=== PATIENT | male | born 1965 | race Two or more races ===

== ENCOUNTER → 2017-01-16 | Outpatient (REF) | payer OTHER, MEDICAID ==
[2017-01-16 12:37] LABS: BASO % 0.6 % (0.0-1.0); EOS # 0.2 K/mm3 (0.0-0.50); EOS % 2.6 % (0.0-3.0); LARGE UNSTAINED CELL # 0.1 K/mm3 (0.0-0.4); LARGE UNSTAINED CELL % 1.3 % (0.0-4.0); LYMPH # 1.9 K/mm3 (1.5-4.5); LYMPH % 27.6 % (24.0-44.0); MEAN CORPUSCULAR HGB CONC 34.8 g/dl (32.0-36.5); MEAN CORPUSCULAR VOLUME 94.8 fl (80.0-96.0); MONO # 0.4 K/mm3 (0.0-0.8); MONO % 5.9 % (0.0-5.0); NEUTROPHILS # 4.2 K/mm3 (1.8-7.7); NEUTROPHILS % 61.9 % (36.0-66.0); PLATELET COUNT, AUTOMATED 215 k/mm3 (150-450); RED CELL DISTRIBUTION WIDTH 12.5 % (11.5-14.5); WHITE BLOOD COUNT 6.7 K/mm3 (4.0-10.0)
[2017-01-16 13:57] LABS: ALBUMIN 3.5 GM/DL (3.2-5.2); ALKALINE PHOSPHATASE 66 U/L (45-117); ALT/SGPT 38 U/L (12-78); ANION GAP 6 MEQ/L (8-16); AST/SGOT 25 U/L (15-37); BILIRUBIN,TOTAL 0.5 MG/DL (0.2-1.0); BLOOD UREA NITROGEN 12 MG/DL (7-18); CALCIUM LEVEL 8.7 MG/DL (8.5-10.1); CARBON DIOXIDE LEVEL 31 MEQ/L (21-32); CHLORIDE LEVEL 104 MEQ/L (98-107); CHOLESTEROL LEVEL 148 MG/DL (<200); CREATININE FOR GFR 0.81 MG/DL (0.70-1.30); GLOMERULAR FILTRATION RATE > 60.0 (>56); GLUCOSE, FASTING 91 MG/DL (70-105); POTASSIUM SERUM 4.7 MEQ/L (3.5-5.1); SODIUM LEVEL 141 MEQ/L (136-145); TRIGLYCERIDES LEVEL 83 MG/DL (<150)
== END ==
LOC: M SFHCADAM 10:43
PROVIDERS: ATTEND Family Medicine
DX: Z00.00 Encounter for general adult medical examination without abnormal findings (principal)

== ENCOUNTER → 2017-02-10 | Day surgery (SDC) | payer MEDICAID, OTHER ==
[~2017-02-10] VITALS: Ht 182.9 cm; Wt 176.9 kg
[~2017-02-10] MED LIST: LIDOCAINE 2% INJ 100 MG/5 ML SDV (FOR ANES.) As Ordered ONE; LISI-538 PO; LR 1,000 ML IV ONE; LR 1,000 ML IV SCH; MIDAZOLAM INJ 2 MG/2 ML VIAL (J2250) As Ordered ONE; ONDANSETRON 4MG/2ML VIAL (J2405) IV PRN; PROPOFOL 200 MG/20 ML VIAL As Ordered ONE
--- NOTE | 2017-02-10 09:29 | RO ---
DATE OF PROCEDURE: 02/10/2017 PREOPERATIVE DIAGNOSIS: Screening colonoscopy. POSTOPERATIVE DIAGNOSIS: Diverticulosis. SURGEON: Dr. Agustin CUSTOMER SERVICE LEADER: None. ANESTHESIA: IV sedation. COMPLICATIONS: None. INDICATIONS FOR PROCEDURE: The patient is a 51-year-old male who presents for screening colonoscopy. After discussion of risks and benefits of the procedure, not limited but including bleeding, infection, perforation, consent was signed and procedure was planned. DESCRIPTION OF PROCEDURE: The patient brought back to operating room #7. After sufficient sedation, he was placed in left lateral decubitus position. Next, a time-out was done to confirm proper patient and proper procedure. Following that, a colonoscope was passed through the rectum all the way to the level of the cecum with minimal resistance. Once the cecum was reached, the scope was slowly withdrawn, examining all four quadrants of the colon. No signs of any masses or polyps. In the sigmoid area, there was mild diverticulosis. Scope was brought back into the rectum, it was retroflexed. No signs of any internal hemorrhoids. Scope was then slowly removed. The patient tolerated procedure well and was awakened from anesthesia and sent to postanesthesia care unit in stable condition.
[2017-02-10 10:15] VITALS: BP 123/86
== END | disposition home or self-care (01) ==
LOC: M SDC 07:08
PROVIDERS: ATTEND Surgery
DX: Z12.11 Encounter for screening for malignant neoplasm of colon (principal); K57.30 Diverticulosis of large intestine without perforation or abscess without bleeding; I10 Essential (primary) hypertension; M12.9 Arthropathy, unspecified; Z79.899 Other long term (current) drug therapy

== ENCOUNTER → 2017-10-15 | Outpatient (REF) | payer OTHER, MEDICAID ==
[2017-10-15 12:16] LABS: BASO # 0.1 10^3/uL (0.0-0.2); EOS # 0.2 10^3/uL (0.0-0.50); EOS % 2.1 % (0.0-3.0); HEMATOCRIT 45.4 % (42.0-52.0); HEMOGLOBIN 15.2 g/dl (14.0-18.0); IMMATURE GRANULOCYTE % 0.5 % (0-3.0); LYMPH # 1.9 10^3/uL (1.5-4.5); LYMPH % 24.2 % (24.0-44.0); MEAN CORPUSCULAR HEMOGLOBIN 31.1 pg (27.0-33.0); MEAN CORPUSCULAR HGB CONC 33.5 g/dl (32.0-36.5); MEAN CORPUSCULAR VOLUME 92.8 fl (80.0-96.0); MONO # 0.6 10^3/uL (0.0-0.8); MONO % 7.4 % (0.0-5.0); NEUTROPHILS % 64.8 % (36.0-66.0); PLATELET COUNT, AUTOMATED 214 10^3/uL (150-450); RED BLOOD COUNT 4.89 10^6/uL (4.30-6.10); RED CELL DISTRIBUTION WIDTH 11.5 % (11.5-14.5); WHITE BLOOD COUNT 7.7 10^3/uL (4.0-10.0)
[2017-10-15 12:40] LABS: ALBUMIN/GLOBULIN RATIO 1.05 (1.00-1.93); ALKALINE PHOSPHATASE 81 U/L (45-117); ALT/SGPT 45 U/L (12-78); ANION GAP 7 MEQ/L (8-16); AST/SGOT 30 U/L (7-37); BILIRUBIN,TOTAL 0.8 MG/DL (0.2-1.0); BLOOD UREA NITROGEN 17 MG/DL (7-18); CALCIUM LEVEL 9.2 MG/DL (8.5-10.1); CARBON DIOXIDE LEVEL 30 MEQ/L (21-32); CHLORIDE LEVEL 100 MEQ/L (98-107); CHOLESTEROL LEVEL 131 MG/DL (<200); CHOLESTEROL RISK RATIO 2.787 (<5); CREATININE FOR GFR 0.89 MG/DL (0.70-1.30); GLOMERULAR FILTRATION RATE > 60.0 (>56); GLUCOSE, FASTING 100 MG/DL (70-100); HDL CHOLESTEROL 47 MG/DL (>40); LDL CHOLESTEROL 65.8 MG/DL (<100); NON-HDL-C 84 MG/DL; POTASSIUM SERUM 4.5 MEQ/L (3.5-5.1); SODIUM LEVEL 137 MEQ/L (136-145); TOTAL PROTEIN 7.8 GM/DL (6.4-8.2); TRIGLYCERIDES LEVEL 91 MG/DL (<150)
== END ==
LOC: M SFHCADAM 09:48
DX: I10 Essential (primary) hypertension (principal); E66.01 Morbid (severe) obesity due to excess calories; Z86.73 Personal history of transient ischemic attack (TIA), and cerebral infarction without residual deficits

== ENCOUNTER 2018-10-06 10:40 | Emergency (ER) | payer MEDICAID, OTHER ==
[~2018-10-06] VITALS: Ht 182.9 cm; Wt 168.2 kg
[~2018-10-06 10:40] MED LIST changes: -LIDOCAINE 2% INJ 100 MG/5 ML SDV (FOR ANES.) As Ordered ONE; -LR 1,000 ML IV ONE; -LR 1,000 ML IV SCH; -MIDAZOLAM INJ 2 MG/2 ML VIAL (J2250) As Ordered ONE; -ONDANSETRON 4MG/2ML VIAL (J2405) IV PRN; -PROPOFOL 200 MG/20 ML VIAL As Ordered ONE
[2018-10-06] MEDS ORDERED: AMLO10TA5 (10:50)
[2018-10-06] MEDS ORDERED: LISI40TA (10:50)
[2018-10-06] MEDS ORDERED: ASPI1CHW2 (10:50)
[2018-10-06] MEDS ORDERED: KEPP10002 (10:50)
[2018-10-06] MEDS ORDERED: ATOR80TA59 (10:50)
[2018-10-06] MEDS ORDERED: HYDR25TAB (10:50)
[2018-10-06] MEDS ORDERED: CLOP75TA2 (10:50)
[2018-10-06] MEDS ORDERED: NS 1,000 ML IV ONE (11:15)
[2018-10-06] MEDS: GASTROGRAFIN SOLUTION 30ML PO SCH ×2 (11:40→12:10)
[2018-10-06 11:51] LABS: BASO % 0.5 % (0.0-1.0); EOS % 1.9 % (0.0-3.0); HEMATOCRIT 40.7 % (42.0-52.0); HEMOGLOBIN 13.9 g/dl (13.5-17.5); LYMPH # 1.9 10^3/uL (1.5-4.5); LYMPH % 20.4 % (24.0-44.0); MEAN CORPUSCULAR HEMOGLOBIN 31.4 pg (27.0-33.0); MEAN CORPUSCULAR HGB CONC 34.2 g/dl (32.0-36.5); MEAN CORPUSCULAR VOLUME 92.1 fl (80.0-96.0); MONO % 8.2 % (0.0-5.0); NEUTROPHILS # 6.4 10^3/uL (1.8-7.7); NEUTROPHILS % 68.7 % (36.0-66.0); PLATELET COUNT, AUTOMATED 231 10^3/uL (150-450); RED BLOOD COUNT 4.42 10^6/uL (4.30-6.10); WHITE BLOOD COUNT 9.3 10^3/uL (4.0-10.0)
[2018-10-06 11:52] LABS: BASO # 0.1 10^3/uL (0.0-0.2); EOS # 0.2 10^3/uL (0.0-0.50); MONO # 0.8 10^3/uL (0.0-0.8)
[2018-10-06 12:06] LABS: INR 1.03; PROTHROMBIN TIME 13.6 SECONDS (12.1-14.4)
[2018-10-06 12:07] LABS: PARTIAL THROMBOPLASTIN TIME 28.9 SECONDS (25.4-37.6)
[2018-10-06 12:54] LABS: ALBUMIN 3.7 GM/DL (3.2-5.2); ALT/SGPT 31 U/L (12-78); AMYLASE 31 U/L (25-115); BILIRUBIN,DIRECT 0.3 MG/DL (0.0-0.2); BILIRUBIN,TOTAL 0.8 MG/DL (0.2-1.0); BLOOD UREA NITROGEN 18 MG/DL (7-18); CALCIUM LEVEL 9.1 MG/DL (8.5-10.1); CARBON DIOXIDE LEVEL 23 MEQ/L (21-32); CHLORIDE LEVEL 97 MEQ/L (98-107); CREATININE FOR GFR 1.07 MG/DL (0.70-1.30); GLOMERULAR FILTRATION RATE > 60.0 (>56); GLUCOSE, FASTING 94 MG/DL (70-100); LIPASE 136 U/L (73-393); POTASSIUM SERUM 4.2 MEQ/L (3.5-5.1); SODIUM LEVEL 132 MEQ/L (136-145); TOTAL PROTEIN 7.2 GM/DL (6.4-8.2)
[2018-10-06] MEDS ORDERED: ISOVUE-370 76% 100ML VIAL (Q9967) As Ordered ONE (13:26)
[2018-10-06] MEDS ORDERED: CIPR-249 PO (14:18)
[2018-10-06] MEDS ORDERED: ONDA4TAB6 PO (14:18)
[2018-10-06] MEDS ORDERED: FLAG500T PO (14:18)
[2018-10-06] MEDS ORDERED: CODE30TA3 PO (14:19)
--- NOTE | 2018-10-06 14:34 | REP ---
CT ABDOMEN AND PELVIS WITH IV CONTRAST: TECHNIQUE: Axial contrast enhanced images from the lung bases to the pubic symphysis using 100 mL Isovue 370 intravenous contrast material with multiplanar reformations. Visualized lung bases demonstrate no infiltrate. The liver, spleen, adrenals, pancreas, and kidneys are unremarkable. There is no hydronephrosis. There is mild atherosclerotic calcification of the abdominal aorta without aneurysm. There is no adenopathy. There is no free air or free fluid. There is mild focal thickening of the lower left colon with surrounding streaky densities in the fat, compatible with mild focal colitis. This is probably due to diverticulitis. No pelvic mass is seen. No fluid collection is seen. Urinary bladder is mildly distended and appears unremarkable. IMPRESSION: Focal colitis lower left colon, likely on the basis of mild diverticulitis. No free air, free fluid, or abscess. Appendix is normal. Electronically Signed by Taran Esteban MD 10/07/2018 09:52 A
[2018-10-06 14:42] VITALS: BP 134/78
== END 2018-10-06 14:51 | disposition home or self-care (01) ==
LOC: M ED 10:40
DX: K57.32 Diverticulitis of large intestine without perforation or abscess without bleeding (principal); I10 Essential (primary) hypertension; Z86.73 Personal history of transient ischemic attack (TIA), and cerebral infarction without residual deficits; Z79.82 Long term (current) use of aspirin; Z79.899 Other long term (current) drug therapy
CPT/HCPCS: 74177; 80048; 80076; 81001; 82150; 83690; 85025; 85610; 85730; 99284; Q9963; Q9967

== ENCOUNTER 2021-05-08 10:35 | Inpatient (IN) | payer OTHER ==
[~2021-05-08] VITALS: Ht 182.9 cm; Wt 168.6 kg
[2021-05-08] MEDS: CLOPIDOGREL 75 MG TAB PO SCH (09:00)
[~2021-05-08 10:35] MED LIST changes: +ACET300T47 PO; +AMLO1TAB25 PO; +ASPI1CHW2; +ATOR80TA59 PO; +CIPR-249 PO; +CLOP75TA2 PO; +FLAG500T PO; +HYDR-3490 PO; +KEPP10002; -LISI-538 PO; +LISI20TA33 PO; +LISI40TA4 PO; +ONDA4TAB6 PO
--- NOTE | 2021-05-08 12:08 | REP ---
INDICATION: Coronavirus workup COMPARISON: None. TECHNIQUE: Portable AP views of the chest FINDINGS: Subtle moderate diffuse bilateral airspace disease noted and consistent with COVID-19 pulmonary disease. No obvious effusion. No pneumothorax. Mild cardiomegaly with loop recorder identified. IMPRESSION: Subtle diffuse bilateral opacities consistent with COVID-19 pulmonary disease. <Electronically signed by Davis Roman > 05/08/21 [id number]
[2021-05-08 13:09] LABS: RSV AMPLIFICATION NEGATIVE (NEGATIVE)
[2021-05-08 13:25] LABS: HEMATOCRIT 40.8 % (42.0-52.0); HEMOGLOBIN 13.8 g/dl (13.5-17.5); MEAN CORPUSCULAR HEMOGLOBIN 31.2 pg (27.0-33.0); MEAN CORPUSCULAR HGB CONC 33.8 g/dl (32.0-36.5); MEAN CORPUSCULAR VOLUME 92.3 fl (80.0-96.0); PLATELET COUNT, AUTOMATED 340 10^3/uL (150-450); RED BLOOD COUNT 4.42 10^6/uL (4.30-6.10); WHITE BLOOD COUNT 8.3 10^3/uL (4.0-10.0)
[2021-05-08] MEDS ORDERED: VITMTA PO (13:27)
[2021-05-08] MEDS ORDERED: HOME MED LIST COMPLETE! XX SCH (13:30)
[2021-05-08 13:38] LABS: INR 1.07; PROTHROMBIN TIME 14.3 SECONDS (12.7-14.5)
[2021-05-08 13:39] LABS: PARTIAL THROMBOPLASTIN TIME 33.4 SECONDS (25.9-37.0)
[2021-05-08 13:41] LABS: D-DIMER QUANT 2820.53 ng/ml (<500)
[2021-05-08 13:58] LABS: BASOPHILS 1 % (0-1); LYMPHOCYTES 11 % (16-44); MONOCYTES 3 % (0-5); NEUTROPHILS 85 % (28-66); PLATELET ESTIMATE NORMAL (NORMAL)
[2021-05-08 14:02] LABS: ALBUMIN 2.6 GM/DL (3.2-5.2); ALT/SGPT 51 U/L (12-78); BILIRUBIN,TOTAL 0.8 MG/DL (0.2-1.0); BLOOD UREA NITROGEN 21 MG/DL (7-18); CALCIUM LEVEL 9.3 MG/DL (8.5-10.1); CARBON DIOXIDE LEVEL 26 MEQ/L (21-32); CHLORIDE LEVEL 100 MEQ/L (98-107); CK-MB VALUE MASS < 1.0 NG/ML (<3.6); CPK CREATINE PHOSPHOKINASE 297 U/L (39-308); CREATININE FOR GFR 1.42 MG/DL (0.70-1.30); FERRITIN 2106 NG/ML (26-388); GLOMERULAR FILTRATION RATE 54.7 (>56); GLUCOSE, FASTING 111 MG/DL (70-100); LDH LACTATE DEHYDROGENASE 344 U/L (87-241); MAGNESIUM LEVEL 1.6 MG/DL (1.8-2.4); MB/CK RELATIVE INDEX 0.34 (< OR =4); POTASSIUM SERUM 4.3 MEQ/L (3.5-5.1); SODIUM LEVEL 132 MEQ/L (136-145); TOTAL PROTEIN 7.5 GM/DL (6.4-8.2); TROPONIN I < 0.02 NG/ML (< 0.10)
[2021-05-08] MEDS ORDERED: ACETAMINOPHEN TAB 650MG DOSE (2X325MG) PO PRN (15:10)
[2021-05-08] MEDS: NS 1,000 ML IV SCH ×2 (15:20→23:02)
[2021-05-08] MEDS ORDERED: ALBUTEROL 90 MCG/ACT 8GM HFA INHALER INH PRN (15:20)
--- NOTE | 2021-05-08 15:33 | HPEPDOC ---
General Date of Admission 05/08/21 Date of Service: May 08, 2021 Chief Complaint The patient is a 56-year-old male admitted with a reason for visit of Covid Test. Source: Patient History of Present Illness Patient is 56 years old male with past medical history of stroke, hypertension, obstructive sleep apnea on CPAP presented to hospital with increased shortness of breath and intermittent cough. Patient stated that he developed these symptoms for past 6- 7 days associated with diarrhea. He states that his family members had Covid and he was not vaccinated. In ER patient was found to have oxygenation of 86-87% on room air, no leukocytosis, hemoglobin 13.8, sodium 132, creatinine 1.4, D-dimer 2820. Patient was tested positive for Covid 19. Chest x-ray shows Subtle diffuse bilateral opacities consistent with COVID-19 pulmonary disease. EKG showed atrial fibrillation Home Medications Scheduled Amlodipine Besylate (Amlodipine Besylate) 10 Mg Tab, 1 TAB PO DAILY, (Reported) Atorvastatin Calcium (Atorvastatin Calcium) 80 Mg Tab, 80 MG PO DAILY, (Reported) Clopidogrel Bisulfate (Clopidogrel) 75 Mg Tab, 75 MG PO DAILY, (Reported) Hydrochlorothiazide (Hydrochlorothiazide) 25 Mg Tab, 25 MG PO DAILY, (Reported) Lisinopril (Lisinopril) 40 Mg Tab, 40 MG PO DAILY, (Reported) Multivitamins (Thera M Plus Tablet) 1 Each Tablet, 2 TAB PO DAILY, (Reported) Allergies Coded Allergies: No Known Allergies (Unverified , 02/06/17) Past Medical History Medical History CVA IN 2018 (MULTIPLE EMBOLIC POSTERIOR CIRCULATION STROKES); WITH R LEG WEAKNESS HYPERTENSION DAVEY, CPAP 13.00 CMH20 (10/2017) ECHO WITH MILD CONCENTRIC LVH, LVEF 50-55%, DILATED ASCENDING AORTA 3.6 CM (09/2017); F/U [facility]NA WITH BUBBLE STUDY TO EVAL FOR PFO WAS NEGATIVE FOR THIS (04/2018) Surgical History KNEE RIGHT 09/14, 05/14 LEFT KNEE 04/13 L RETINAL DETACHMENT COLONOSCOPY 10 YEARS 02/2017 Family History FATHER: , DIAGNOSED WITH UNSPECIFIED CEREBRAL ARTERY OCCLUSION WITH CEREBRAL INFARCTION MOTHER: ALIVE, DIABETES, HYPERTENSION SIBLINGS: , COLON CANCER, OTHER MALIGNANT NEOPLASM OF UNSPECIFIED SITE 1 BROTHER(S) , 1 SISTER(S) . Social History * Smoker: Denies Alcohol: occationally Drugs: denies A-FIB/CHADSVASC A-FIB History Current/History of A-Fib/PAF?: No Current PO Anticoag Therapy: No Review of Systems Constitutional: Reports: Weakness; Denies: Chills, Fever Eyes: Denies: Pain ENT: Denies: Head Aches Skin: Denies: Rash, Lesions Pulmonary: Reports: Dyspnea, Cough Cardiovascular: Denies: Chest Pain Gastrointestinal: Denies: Nausea, Vomiting Genitourinary: Denies: Dysuria Hematologic: Denies: Bruising Endocrine: Denies: Polydipsia Musculoskeletal: Denies: Neck Pain Neurological: Denies: Weakness Psych: Reports: Mood Normal Physical Examination General Exam: Positive: Alert, Cooperative Eye Exam: Positive: PERRLA ENT Exam: Positive: Atraumatic Neck Exam: Positive: Supple; Negative: JVD Chest Exam: Positive: Diminished; Negative: Clear to auscultation Heart Exam: Positive: Rate Normal Telemetry: Positive: No significant arrhythmia Abdomen Exam: Positive: Normal bowel sounds Extremity Exam: Negative: Clubbing, Cyanosis Skin Exam: Positive: Nl turgor and temperature Neuro Exam: Positive: Normal Gait Psych Exam: Positive: Mental status NL Vital Signs Vital Signs Date Time Temp Pulse Resp B/P (MAP) Pulse Ox O2 Delivery O2 Flow Rate FiO2 05/08/21 10:36 98.3 83 18 108/72 (84) 94 Room Air Laboratory Data Labs 24H Laboratory Tests 2 05/08/21 12:20: Neutrophils (%) (Auto) , Nucleated Red Blood Cells % (auto) 0.0, Neutrophils 85H, Lymphocytes (Manual) 11L, Monocytes (Manual) 3, Basophils (Manual) 1, Platelet Estimate NORMAL, Prothrombin Time 14.3H, Prothromb Time International Ratio 1.07, Activated Partial Thromboplast Time 33.4, Fibrinogen 868H, D-Dimer, Quantitative 2820.53H, Anion Gap 6L, Glomerular Filtration Rate 54.7L, Lactic Acid Level 1.9, Calcium Level 9.3, Magnesium Level 1.6L, Ferritin 2106H, Total Bilirubin 0.8, Aspartate Amino Transf (AST/SGOT) 46H, Alanine Aminotransferase (ALT/SGPT) 51, Alkaline Phosphatase 57, Lactate Dehydrogenase 344H, Total Creatine Kinase 297, Creatine Kinase MB < 1.0, Creatine Kinase MB Relative Index 0.34, Troponin I < 0.02, C-Reactive Protein, Quantitative 22.40H, Total Protein 7.5, Albumin 2.6L, Albumin/Globulin Ratio 0.5, Coronavirus (COVID-19)(PCR) POSITIVEA, Influenza Type A (RT-PCR) NEGATIVE, Influenza Type B (RT-PCR) NEGATIVE, Respiratory Syncytial Virus (PCR) NEGATIVE CBC/BMP Laboratory Tests 05/08/21 12:20 Microbiology Microbiology 05/08/21 Blood Culture, Received Pending Assessment/Plan Patient is 56 years old male with past medical history of stroke, hypertension, obstructive sleep apnea on CPAP presented to hospital with increased shortness of breath and intermittent cough. Patient stated that he developed these symptoms for past 6- 7 days associated with diarrhea. He states that his family members had Covid and he was not vaccinated. In ER patient was found to have oxygenation of 86-87% on room air, no leukocytosis, hemoglobin 13.8, sodium 132, creatinine 1.4, D-dimer 2820. Patient was tested positive for Covid 19. Chest x-ray shows Subtle diffuse bilateral opacities consistent with COVID-19 pulmonary disease. Problems (1) COVID-19 Status: Acute Problem Text: COVID-19 pneumonia X-ray shows bilateral patchy infiltrate Labs according to Covid protocol D-dimer elevated, I started full dose of anticoagulation Remdesivir IV , dexamethasone Iv We will discuss with infectious disease baricitinib administration Await procalcitonin, if elevated will start antibiotics (2) Morbid obesity Status: Chronic Problem Text: BMI 48.9 Complicated care (3) Acute hypoxemic respiratory failure Status: Acute Problem Text: Superimposed with obstructive sleep apnea Secondary to COVID-19 pneumonia Incentive spirometry (4) Hypertension Status: Chronic Problem Text: Continue home meds (5) CANELO (acute kidney injury) Status: Acute Problem Text: Most likely secondary to dehydration IV fluid Continue to monitor (6) Atrial fibrillation Status: Acute Problem Text: Patient was not diagnosed with atrial fibrillation before Full dose of anticoagulation for now Metoprolol 25 mg twice daily Plan / VTE VTE Prophylaxis Ordered?: Yes SHAYAN CLIFTON DO May 08, 2021 15:33
[2021-05-08 16:01] LABS: BILIRUBIN,DIRECT 0.3 MG/DL (0.0-0.2)
[2021-05-08] MEDS ORDERED: REMDESIVIR 200 MG in NS 250 ML IV ONE (17:00)
[2021-05-08] MEDS ORDERED: METOPROLOL 5 MG/5 ML VIAL IV PRN (18:30)
[2021-05-08] MEDS ORDERED: SODIUM CHLORIDE 0.9% INJ 10 ML SYR IV ONE (19:00)
[2021-05-08 20:00] VITALS: O2SAT 94
[2021-05-08 20:24] VITALS: BP 106/80
[2021-05-08] MEDS: ENOXAPARIN 150MG/ML SYRINGE (J1650 PER 10MG) SC SCH (20:36)
[2021-05-08] MEDS: BARICITINIB 2MG TABLET (OLUMIANT) FOR EUA PO SCH (20:38)
[2021-05-08] MEDS: METOPROLOL TART 50 MG TAB PO SCH (20:39)
[2021-05-08] MEDS ORDERED: METOPROLOL TART 25 MG TABLET PO SCH (21:00)
[2021-05-08 23:24] VITALS: BP 104/68
[2021-05-09] VITALS (18 sets, daily range): BP systolic 113–125; BP diastolic 68–75; O2SAT 88–95
[2021-05-09 00:54] LABS: APPEARANCE, URINE HAZY (CLEAR); BACTERIA, URINE AUTO NEGATIVE (NEGATIVE); BILIRUBIN, URINE AUTO NEGATIVE (NEGATIVE); BLOOD, URINE BLOOD NEGATIVE (NEGATIVE); COLOR, URINE YELLOW (YELLOW); GLUCOSE, URINE (UA) AUTO NEGATIVE (NEGATIVE); KETONE, URINE AUTO NEGATIVE (NEGATIVE); LEUKOCYTE ESTERASE, URINE AUTO NEGATIVE (NEGATIVE); MUCUS, URINE SMALL (NEGATIVE); NITRITE, URINE AUTO NEGATIVE (NEGATIVE); PROTEIN, URINE AUTO 1+ mg/dL (NEGATIVE); RBC, URINE AUTO 3 /HPF (0-3); SPECIFIC GRAVITY URINE AUTO 1.015 (1.002-1.035); SQUAMOUS EPITHELIAL CELL UR AU 1 /HPF (0-6); WBC, URINE AUTO 2 /HPF (0-3)
[2021-05-09] MEDS: NS 1,000 ML IV SCH ×3 (06:27→22:24)
[2021-05-09] MEDS: ENOXAPARIN 150MG/ML SYRINGE (J1650 PER 10MG) SC SCH (06:27)
[2021-05-09 08:02] LABS: HEMATOCRIT 36.9 % (42.0-52.0); HEMOGLOBIN 12.5 g/dl (13.5-17.5); MEAN CORPUSCULAR HEMOGLOBIN 31.3 pg (27.0-33.0); MEAN CORPUSCULAR HGB CONC 33.9 g/dl (32.0-36.5); MEAN CORPUSCULAR VOLUME 92.5 fl (80.0-96.0); PLATELET COUNT, AUTOMATED 372 10^3/uL (150-450); RED BLOOD COUNT 3.99 10^6/uL (4.30-6.10); WHITE BLOOD COUNT 7.5 10^3/uL (4.0-10.0)
[2021-05-09 08:20] LABS: ALBUMIN 2.2 GM/DL (3.2-5.2); ALT/SGPT 59 U/L (12-78); BILIRUBIN,DIRECT 0.1 MG/DL (0.0-0.2); BILIRUBIN,TOTAL 0.5 MG/DL (0.2-1.0); BLOOD UREA NITROGEN 23 MG/DL (7-18); CALCIUM LEVEL 8.6 MG/DL (8.5-10.1); CARBON DIOXIDE LEVEL 26 MEQ/L (21-32); CHLORIDE LEVEL 103 MEQ/L (98-107); CREATININE FOR GFR 0.91 MG/DL (0.70-1.30); GLOMERULAR FILTRATION RATE > 60.0 (>56); GLUCOSE, FASTING 107 MG/DL (70-100); MAGNESIUM LEVEL 1.8 MG/DL (1.8-2.4); POTASSIUM SERUM 3.5 MEQ/L (3.5-5.1); SODIUM LEVEL 136 MEQ/L (136-145); TOTAL PROTEIN 6.8 GM/DL (6.4-8.2)
[2021-05-09 08:48] LABS: ATYPICAL LYMPH 5 % (0-5); BASOPHILS 1 % (0-1); EOSINOPHILS 3 % (0-3); LYMPHOCYTES 14 % (16-44); MONOCYTES 8 % (0-5); NEUTROPHILS 68 % (28-66); PLATELET ESTIMATE NORMAL (NORMAL)
[2021-05-09] MEDS: MULTIVITAMINS/MINERALS THERAP 1 TAB PO SCH (10:27)
[2021-05-09] MEDS: ATORVASTATIN 20 MG TAB PO SCH (10:28)
[2021-05-09] MEDS: BARICITINIB 2MG TABLET (OLUMIANT) FOR EUA PO SCH (10:28)
[2021-05-09] MEDS: lisinopriL 40 MG TAB PO SCH (10:28)
[2021-05-09] MEDS: CLOPIDOGREL 75 MG TAB PO SCH (10:29)
[2021-05-09] MEDS: METOPROLOL TART 50 MG TAB PO SCH ×2 (10:29→20:35)
[2021-05-09] MEDS: dexameTHASONE 4 MG/ML 1ML VIAL (J1100 PER 1MG) IV SCH (10:31)
[2021-05-09] MEDS: guaiFENesin ER 600 MG TAB PO SCH ×2 (12:26→20:34)
--- NOTE | 2021-05-09 13:19 | IPNPDOC ---
Text Note Date of Service The patient was seen on 05/09/21. NOTE Subjective: No any acute events overnight. Patient's oxygen requirements around 4 L via nasal cannula. He did not use oxygen before admission. Objective: GENERAL APPEARANCE: Morbidly obese man HEENT: no scleral icterus, no JVD, EOMI CARDIOVASCULAR: S1S2 LUNGS: Diminished lung sounds bilaterally ABDOMEN: soft & not tender w palpation MUSCULOSKELETAL: no cyanosis, no swelling INTEGUMENT: no generalized pallor NEUROLOGICAL: cranial nerve function from 2-12 intact, follows commands, speech not dysarthric Assessment/Plan Patient is 56 years old male with past medical history of stroke, hypertension, obstructive sleep apnea on CPAP presented to hospital with increased shortness of breath and intermittent cough. Patient stated that he developed these symptoms for past 6- 7 days associated with diarrhea. He states that his family members had Covid and he was not vaccinated. In ER patient was found to have oxygenation of 86-87% on room air, no leukocytosis, hemoglobin 13.8, sodium 132, creatinine 1.4, D-dimer 2820. Patient was tested positive for Covid 19. Chest x-ray shows Subtle diffuse bilateral opacities consistent with COVID-19 pulmonary disease. Problems (1) COVID-19 COVID-19 pneumonia X-ray shows bilateral patchy infiltrate Labs according to Covid protocol D-dimer elevated, Continue Eliquis Remdesivir IV , dexamethasone Iv, baricitinib Procalcitonin negative, I will not initiate antibiotic therapy (2) Morbid obesity BMI 48.9 Complicated care (3) Acute hypoxemic respiratory failure Superimposed with obstructive sleep apnea Patient's current oxygen requirements 4 L, with no oxygen he rapidly desaturated to 84% Secondary to COVID-19 pneumonia Incentive spirometry (4) Hypertension Continue home meds (5) CANELO (acute kidney injury) Resolved Most likely secondary to dehydration Baseline of creatinine 0.9, elevated on admission to 1.4 IV fluid Continue to monitor (6) Atrial fibrillation Patient was not diagnosed with atrial fibrillation before Eliquis 5 mg twice daily Metoprolol 25 mg twice daily VS,Fishbone, I+O VS, Fishbone, I+O Laboratory Tests 05/09/21 06:52 Vital Signs Date Time Temp Pulse Resp B/P (MAP) Pulse Ox O2 Delivery O2 Flow Rate FiO2 05/09/21 11:47 98.2 92 22 118/75 (89) 94 Nasal Cannula 4.0 I&O- Last 24 Hours up to 6 AM 05/09/21 06:00 Intake Total 1190 ml Output Total 850 ml Balance 340 ml SHAYAN CLIFTON DO May 09, 2021 13:19
[2021-05-09] MEDS ORDERED: REMDESIVIR 100 MG in NS 250 ML IV SCH ×2 (17:00→21:00)
--- NOTE | 2021-05-09 17:34 | ECGEPIP ---
[facility] - ED Test Date: 2021-05-08 Pat Name: ANNE JUNG Department: Room: - Gender: Male Visitor Services Information Assistant: INDRA : 1965 Requested By: Elvia Osullivan Order Number: [id number] Reading MD: Elvia Osullivan Measurements Intervals [place] Rate: 118 P: VT: QRS: -61 QRSD: 78 T: 32 QT: 308 QTc: 431 Interpretive Statements Atrial fibrillation with rapid ventricular response Left anterior fascicular block prwp No prior Electronically Signed on 05-09-2021 17:33:44 EDT by Elvia Osullivan
[2021-05-09] MEDS ORDERED: SODIUM CHLORIDE 0.9% INJ 10 ML SYR IV SCH ×2 (18:00→22:00)
[2021-05-09] MEDS: APIXABAN 5 MG TAB (ELIQUIS) PO SCH (20:34)
[2021-05-10] VITALS: BP 117/88; O2SAT 96
[2021-05-10 04:00] VITALS: BP 122/82; O2SAT 91
[2021-05-10] MEDS: NS 1,000 ML IV SCH (06:32)
[2021-05-10 07:37] LABS: HEMATOCRIT 35.9 % (42.0-52.0); HEMOGLOBIN 12.2 g/dl (13.5-17.5); MEAN CORPUSCULAR HEMOGLOBIN 31.2 pg (27.0-33.0); MEAN CORPUSCULAR VOLUME 91.8 fl (80.0-96.0); PLATELET COUNT, AUTOMATED 440 10^3/uL (150-450); RED BLOOD COUNT 3.91 10^6/uL (4.30-6.10); WHITE BLOOD COUNT 9.6 10^3/uL (4.0-10.0)
[2021-05-10 07:51] LABS: INR 1.16; PROTHROMBIN TIME 15.2 SECONDS (12.7-14.5)
[2021-05-10 07:52] LABS: PARTIAL THROMBOPLASTIN TIME 31.9 SECONDS (25.9-37.0)
[2021-05-10 08:19] LABS: ALBUMIN 2.1 GM/DL (3.2-5.2); ALT/SGPT 74 U/L (12-78); BILIRUBIN,DIRECT 0.1 MG/DL (0.0-0.2); BILIRUBIN,TOTAL 0.4 MG/DL (0.2-1.0); BLOOD UREA NITROGEN 23 MG/DL (7-18); CALCIUM LEVEL 8.6 MG/DL (8.5-10.1); CARBON DIOXIDE LEVEL 25 MEQ/L (21-32); CHLORIDE LEVEL 110 MEQ/L (98-107); CPK CREATINE PHOSPHOKINASE 244 U/L (39-308); CREATININE FOR GFR 0.79 MG/DL (0.70-1.30); FERRITIN 1893 NG/ML (26-388); GLOMERULAR FILTRATION RATE > 60.0 (>56); GLUCOSE, FASTING 138 MG/DL (70-100); LDH LACTATE DEHYDROGENASE 265 U/L (87-241); NT-PRO BNP 1377 PG/ML (<125); POTASSIUM SERUM 4.3 MEQ/L (3.5-5.1); SODIUM LEVEL 139 MEQ/L (136-145); TOTAL PROTEIN 6.8 GM/DL (6.4-8.2); TROPONIN I < 0.02 NG/ML (< 0.10)
[2021-05-10 08:26] LABS: ATYPICAL LYMPH 1 % (0-5); LYMPHOCYTES 8 % (16-44); MONOCYTES 5 % (0-5); NEUTROPHILS 86 % (28-66); PLATELET ESTIMATE NORMAL (NORMAL)
[2021-05-10] MEDS: MULTIVITAMINS/MINERALS THERAP 1 TAB PO SCH (08:35)
[2021-05-10] MEDS: ATORVASTATIN 20 MG TAB PO SCH (08:35)
[2021-05-10] MEDS: BARICITINIB 2MG TABLET (OLUMIANT) FOR EUA PO SCH (08:36)
[2021-05-10] MEDS: dexameTHASONE 4 MG/ML 1ML VIAL (J1100 PER 1MG) IV SCH (08:36)
[2021-05-10] MEDS: APIXABAN 5 MG TAB (ELIQUIS) PO SCH (08:37)
[2021-05-10] MEDS: CLOPIDOGREL 75 MG TAB PO SCH (08:37)
[2021-05-10] MEDS: guaiFENesin ER 600 MG TAB PO SCH (08:37)
[2021-05-10 08:39] VITALS: BP 119/79
[2021-05-10] MEDS: METOPROLOL TART 50 MG TAB PO SCH (08:39)
[2021-05-10] MEDS: lisinopriL 40 MG TAB PO SCH (08:39)
[2021-05-10 08:40] VITALS: BP 119/79
[2021-05-10 11:55] VITALS: BP 119/68
[2021-05-10] MEDS ORDERED: ELIQ5TAB PO (14:16)
--- NOTE | 2021-05-10 14:18 | IPNPDOC ---
Text Note Date of Service The patient was seen on 05/10/21. NOTE Subjective: No any acute events overnight. Patient's oxygen requirements around 4-5 L via nasal cannula. Patient stated that he feels better today Objective: GENERAL APPEARANCE: Morbidly obese man HEENT: no scleral icterus, no JVD, EOMI CARDIOVASCULAR: S1S2 LUNGS: Diminished lung sounds bilaterally ABDOMEN: soft & not tender w palpation MUSCULOSKELETAL: no cyanosis, no swelling INTEGUMENT: no generalized pallor NEUROLOGICAL: cranial nerve function from 2-12 intact, follows commands, speech not dysarthric Assessment/Plan Patient is 56 years old male with past medical history of stroke, hypertension, obstructive sleep apnea on CPAP presented to hospital with increased shortness of breath and intermittent cough. Patient stated that he developed these symptoms for past 6- 7 days associated with diarrhea. He states that his family members had Covid and he was not vaccinated. In ER patient was found to have o xygenation of 86-87% on room air, no leukocytosis, hemoglobin 13.8, sodium 132, creatinine 1.4, D-dimer 2820. Patient was tested positive for Covid 19. Chest x-ray shows Subtle diffuse bilateral opacities consistent with COVID-19 pulmonary disease. Problems (1) COVID-19 COVID-19 pneumonia X-ray shows bilateral patchy infiltrate Labs according to Covid protocol D-dimer elevated, Continue Eliquis Remdesivir IV , dexamethasone Iv, baricitinib Procalcitonin negative, I will not initiate antibiotic therapy (2) Morbid obesity BMI 48.9 Complicated care (3) Acute hypoxemic respiratory failure Superimposed with obstructive sleep apnea Patient's current oxygen requirements 4 L, with no oxygen he rapidly desaturated to 84% Secondary to COVID-19 pneumonia Incentive spirometry (4) Hypertension Continue home meds (5) CANELO (acute kidney injury) Resolved Most likely secondary to dehydration Baseline of creatinine 0.9, elevated on admission to 1.4 IV fluid Continue to monitor (6) Atrial fibrillation Patient was not diagnosed with atrial fibrillation before Eliquis 5 mg twice daily Metoprolol 25 mg twice daily DVT prophylaxis with Eliquis VS,Fishbone, I+O VS, Fishbone, I+O Laboratory Tests 05/10/21 07:23 Vital Signs Date Time Temp Pulse Resp B/P (MAP) Pulse Ox O2 Delivery O2 Flow Rate FiO2 05/10/21 11:55 96.8 83 20 119/68 (85) 93 Nasal Cannula 2.0 I&O- Last 24 Hours up to 6 AM 05/10/21 06:00 Intake Total 3635 ml Output Total 1100 ml Balance 2535 ml SHAYAN CLIFTON DO May 10, 2021 14:18
[2021-05-10 15:57] VITALS: BP 105/70
[2021-05-10] MEDS ORDERED: VENTAER INH (16:47)
[2021-05-10] MEDS ORDERED: LOPR1TAB6 PO (16:47)
[2021-05-10] MEDS ORDERED: MUCI600T31 PO (16:47)
--- NOTE | 2021-05-10 16:58 | DS.PDOC ---
Discharge Summary General Date of Admission May 08, 2021 at 15:06 Date of Discharge 05/10/21 Discharge Summary PROCEDURES PERFORMED DURING STAY: [None]. ADMITTING DIAGNOSES: COVID-19 Morbid obesity Acute hypoxemic respiratory failure Hypertension CANELO (acute kidney injury) Atrial fibrillation DISCHARGE DIAGNOSES: COVID-19 Morbid obesity Acute hypoxemic respiratory failure Hypertension CANELO (acute kidney injury) Atrial fibrillation COMPLICATIONS/CHIEF COMPLAINT: Covid-19. HISTORY OF PRESENT ILLNESS:Patient is 56 years old male with past medical history of stroke, hypertension, obstructive sleep apnea on CPAP presented to hospital with increased shortness of breath and intermittent cough. Patient stated that he developed these symptoms for past 6- 7 days associated with diarrhea. He states that his family members had Covid and he was not vaccinated. In ER patient was found to have oxygenation of 86-87% on room air, no leukocytosis, hemoglobin 13.8, sodium 132, creatinine 1.4, D-dimer 2820. Patient was tested positive for Covid 19. Chest x-ray shows Subtle diffuse bilateral opacities consistent with COVID-19 pulmonary disease. HOSPITAL COURSE: During the hospital stay the following issue addressed (1) COVID-19 COVID-19 pneumonia X-ray shows bilateral patchy infiltrate Patient received remdesivir IV , dexamethasone Iv, baricitinib with positive effect Procalcitonin negative, I will not initiate antibiotic therapy 1 set of blood culture was positive for gram-positive cocci in clusters. Patient is not septic, clinically improved. Most likely its contamination Today, patient breathing status markedly improved. He has 94% oxygen saturation on room air (2) Morbid obesity BMI 48.9 Complicated care (3) Acute hypoxemic respiratory failure Superimposed with obstructive sleep apnea Resolved (4) Hypertension Continue home meds (5) CANELO (acute kidney injury) Resolved (6) Atrial fibrillation Patient was not diagnosed with atrial fibrillation before Eliquis 5 mg twice daily Patient received metoprolol 50 twice daily. Patient will need follow-up with control room operator DISCHARGE MEDICATIONS: Please see below. ALLERGIES: Please see below. PHYSICAL EXAMINATION ON DISCHARGE: VITAL SIGNS: Please see below. GENERAL APPEARANCE: Morbidly obese man HEENT: no scleral icterus, no JVD, EOMI CARDIOVASCULAR: S1S2 LUNGS: Diminished lung sounds bilaterally ABDOMEN: soft & not tender w palpation MUSCULOSKELETAL: no cyanosis, no swelling INTEGUMENT: no generalized pallor NEUROLOGICAL: cranial nerve function from 2-12 intact, follows commands, speech not dysarthric LABORATORY DATA: Please see below. PROGNOSIS: Fair ACTIVITY: [As tolerated]. DIET: Cardiac DISPOSITION: . Home DISCHARGE INSTRUCTIONS: Continue isolation for 14 days in total ITEMS TO FOLLOWUP ON ON OUTPATIENT: Follow-up with PCP DISCHARGE CONDITION: [Stable]. TIME SPENT ON DISCHARGE: 40 minutes. Vital Signs/I&Os Vital Signs Date Time Temp Pulse Resp B/P (MAP) Pulse Ox O2 Delivery O2 Flow Rate FiO2 05/10/21 16:45 94 Room Air 05/10/21 15:57 97.2 86 20 105/70 (82) 2.0 I&O- Last 24 Hours up to 6 AM 05/10/21 06:00 Intake Total 3635 ml Output Total 1100 ml Balance 2535 ml Laboratory Data Labs 24H Laboratory Tests 2 05/10/21 07:23: Neutrophils (%) (Auto) , Nucleated Red Blood Cells % (auto) 0.0, Neutrophils 86H, Lymphocytes (Manual) 8L, Monocytes (Manual) 5, Atypical Lymphocytes 1, Red Blood Cell Morphology NORMAL, Platelet Estimate NORMAL, Prothrombin Time 15.2H, Prothromb Time International Ratio 1.16, Activated Partial Thromboplast Time 31.9, Fibrinogen 713H, Anion Gap 4L, Glomerular Filtration Rate > 60.0, Calcium Level 8.6, Magnesium Level 2.0, Ferritin 1893H, Total Bilirubin 0.4, Direct Bilirubin 0.1, Aspartate Amino Transf (AST/SGOT) 53H, Alanine Aminotransferase (ALT/SGPT) 74, Alkaline Phosphatase 51, Lactate Dehydrogenase 265H, Total Creatine Kinase 244, Troponin I < 0.02, PK-Grl-P-Type Natriuretic Peptide 1377H, Total Protein 6.8, Albumin 2.1L, Albumin/Globulin Ratio 0.4, Procalcitonin <0.05 CBC/BMP Laboratory Tests 05/10/21 07:23 Microbiology Microbiology 05/09/21 Blood Culture, Received Pending 05/09/21 Blood Culture, Received Pending 05/08/21 Blood Culture - Preliminary, Resulted 05/08/21 Blood Culture - Preliminary, Resulted No Growth after 48 hours. All Specime... Discharge Medications Scheduled Amlodipine Besylate (Amlodipine Besylate) 10 Mg Tab, 1 TAB PO DAILY, (Reported) Apixaban (Eliquis) 5 Mg Tablet, 5 MG PO BID Atorvastatin Calcium (Atorvastatin Calcium) 80 Mg Tab, 80 MG PO DAILY, ( Reported) Clopidogrel Bisulfate (Clopidogrel) 75 Mg Tab, 75 MG PO DAILY, (Reported) Guaifenesin (Mucinex) 600 Mg Tab.er.12h, 600 MG PO BID Hydrochlorothiazide (Hydrochlorothiazide) 25 Mg Tab, 25 MG PO DAILY, (Reported) Lisinopril (Lisinopril) 40 Mg Tab, 40 MG PO DAILY, (Reported) Metoprolol Tartrate (Lopressor) 50 Mg Tablet, 50 MG PO BID Multivitamins (Thera M Plus Tablet) 1 Each Tablet, 2 TAB PO DAILY, (Reported) Scheduled PRN Albuterol Sulfate (Ventolin Hfa) 18 Gm Hfa.aer.ad, 4 PUFF INH Q1HP PRN for SHORTNESS OF BREATH Allergies Coded Allergies: No Known Allergies (Unverified , 02/06/17) SHAYAN CLIFTON DO May 10, 2021 16:58
[2021-05-11 21:14] LABS: BODY FLUID CULTURE Not indicated. (.); LEGIONELLA ANTIGEN URINE Negative (Negative); ORGANISM ID Not indicated. (.); SPECIMEN SOURCE Urine (.); URINE STREP PNEUMONIAE ANTIGEN Negative (Negative)
== END 2021-05-10 17:20 | disposition home or self-care (01) | DRG 137 ==
LOC: M ED 10:35 → M ED INP 15:06 → ENRESERV 16:06 → M 4MAIN 17:47
PROVIDERS: ADMIT Internal Medicine; ATTEND Internal Medicine
DX: U07.1 COVID-19 (principal); J96.01 Acute respiratory failure with hypoxia; J12.82 Pneumonia due to coronavirus disease 2019; N17.9 Acute kidney failure, unspecified; E66.01 Morbid (severe) obesity due to excess calories; I48.91 Unspecified atrial fibrillation; Z68.42 Body mass index [BMI] 45.0-49.9, adult; I10 Essential (primary) hypertension; Z86.73 Personal history of transient ischemic attack (TIA), and cerebral infarction without residual deficits; G47.33 Obstructive sleep apnea (adult) (pediatric); Z79.899 Other long term (current) drug therapy

== ENCOUNTER → 2022-02-28 | Outpatient (REF) | payer OTHER ==
[~2022-02-28] MED LIST changes: +ELIQ5TAB PO; +LOPR1TAB6 PO; +MUCI600T31 PO; +VENTAER INH; +VITMTA PO
[2022-02-28 17:02] LABS: BASO # 0.1 10^3/uL (0.0-0.2); BASO % 0.9 % (0.0-1.0); EOS # 0.2 10^3/uL (0.0-0.5); EOS % 1.9 % (0.0-3.0); HEMATOCRIT 46.1 % (42.0-52.0); HEMOGLOBIN 15.3 g/dl (13.5-17.5); LYMPH # 1.9 10^3/uL (1.5-5.0); LYMPH % 21.7 % (24.0-44.0); MEAN CORPUSCULAR HGB CONC 33.2 g/dl (32.0-36.5); MEAN CORPUSCULAR VOLUME 96.4 fl (80.0-96.0); MONO # 0.7 10^3/uL (0.0-0.8); MONO % 8.2 % (2.0-8.0); NEUTROPHILS # 5.9 10^3/uL (1.5-8.5); NEUTROPHILS % 66.8 % (36.0-66.0); PLATELET COUNT, AUTOMATED 239 10^3/uL (150-450); RED BLOOD COUNT 4.78 10^6/uL (4.30-6.10); WHITE BLOOD COUNT 8.9 10^3/uL (4.0-10.0)
[2022-02-28 17:44] LABS: HEMOGLOBIN A1c 5.7 %
[2022-02-28 17:48] LABS: ALT/SGPT 46 U/L (12-78); BILIRUBIN,TOTAL 0.5 MG/DL (0.2-1.0); BLOOD UREA NITROGEN 18 MG/DL (7-18); CALCIUM LEVEL 9.5 MG/DL (8.5-10.1); CARBON DIOXIDE LEVEL 26 MEQ/L (21-32); CHLORIDE LEVEL 103 MEQ/L (98-107); CHOLESTEROL LEVEL 115 MG/DL (<200); CHOLESTEROL RISK RATIO 2.395 (<5); CREATININE FOR GFR 0.96 MG/DL (0.70-1.30); FREE T4 1.09 NG/DL (0.76-1.46); GLOMERULAR FILTRATION RATE > 60.0 (>56); GLUCOSE, FASTING 105 MG/DL (70-100); HDL CHOLESTEROL 48 MG/DL (>40); LDL CHOLESTEROL 53 MG/DL (<100); NON-HDL-C 67 MG/DL; POTASSIUM SERUM 4.3 MEQ/L (3.5-5.1); SODIUM LEVEL 136 MEQ/L (136-145); THYROID STIMULATING HORMONE 0.962 uIU/ML (0.358-3.740); TOTAL PROTEIN 7.6 GM/DL (6.4-8.2); TRIGLYCERIDES LEVEL 72 MG/DL (<150)
== END ==
LOC: M SFHCADAM 11:03
PROVIDERS: ATTEND Family Medicine
DX: Z00.00 Encounter for general adult medical examination without abnormal findings (principal)